=== PATIENT | male | born 1955 | race Caucasian/White ===

== ENCOUNTER 2021-01-26 11:44 | Emergency (ER) | payer MEDICARE ==
[2021-01-26] MEDS ORDERED: Nitroglycerin 2% Ointment 1 INCH/1 GM Packet ONE (12:13)
[2021-01-26] MEDS ORDERED: Aspirin Chewable 81 MG TAB ONE (12:13)
[2021-01-26] MEDS ORDERED: Acetaminophen 500 MG TAB ONE (12:19)
[2021-01-26 12:21] LABS: #Basophils 0.1 thou/uL (0.0-0.2); #Eosinphils 0.1 thou/uL (0.0-0.7); #Lymphocytes 2.4 thou/uL (1.20-3.40); #Monocytes 0.7 thou/uL (0.11-0.59); %Basophils 0.7 % (0.0-1.0); %Eosinophils 0.7 % (0.0-10.0); %Lymphocytes 26.1 % (21.0-51.0); %Monocytes 7.4 % (0.0-10.0); %Neutrophils 65.2 % (42.0-75.0); Hemoglobin 15.3 g/dL (14.0-18.0); Mean Corpuscular HGB CONC 32.4 g/dL (32.0-36.0); Mean Corpuscular Hemoglobin 31.9 pg (27.0-31.0); Mean Corpuscular Volume 98.5 fL (78.0-98.0); Mean Platelet Volume 6.7 fL (7.4-10.4); Platelet Count 274 thou/uL (130-400); RBC Distribution Width 13.3 % (11.5-14.5); Red Blood Cell (RBC) Count 4.78 mill/uL (4.70-6.10); White Blood Cell (WBC) Count 9.2 thou/uL (4.8-10.8)
[2021-01-26 12:23] LABS: ALT (SGPT) 58 U/L (8-55); AST (SGOT) 25 U/L (5-34); Albumin 3.9 g/dL (3.4-4.8); Alkaline Phosphatase 67 U/L (40-110); Anion Gap 16 mmol/L (10-20); BUN (Urea Nitrogen) 13 mg/dL (8.4-25.7); Bilirubin, Total 0.6 mg/dL (0.2-1.2); Calc. Creatinine Clearance 0 mL/min (70-130); Calcium 8.7 mg/dL (7.8-10.44); Carbon Dioxide 21 mmol/L (23-31); Chloride 105 mmol/L (98-107); Globulin 2.2 g/dL (2.4-3.5); Glucose 127 mg/dL (80-115); Potassium 4.1 mmol/L (3.5-5.1); Protein, Total 6.1 g/dL (5.8-8.1); Sodium 138 mmol/L (136-145)
[2021-01-26] MEDS ORDERED: Furosemide 40 MG/4 ML VIAL ONE (12:46)
[2021-01-26] MEDS ORDERED: Lorazepam 0.5 MG TAB ONE (12:55)
== END 2021-01-26 14:37 | disposition short-term general hospital (02) ==
LOC: NAV ERS 11:44
DX: I11.0 Hypertensive heart disease with heart failure (principal); I50.9 Heart failure, unspecified; E78.5 Hyperlipidemia, unspecified; E78.00 Pure hypercholesterolemia, unspecified; F17.210 Nicotine dependence, cigarettes, uncomplicated; Z79.899 Other long term (current) drug therapy
CPT/HCPCS: 71046; 80053; 83880; 84484; 85025; 93005; 96374; J1940

== ENCOUNTER 2023-05-12 11:20 | Emergency (ER) | payer MEDICARE ==
[2023-05-12] MEDS ORDERED: Sodium Chloride 0.9% 1,000 ML ONE (11:57)
[2023-05-12 12:10] LABS: #Basophils 0.1 thou/uL (0.0-0.2); #Eosinphils 0.1 thou/uL (0.0-0.7); #Monocytes 0.6 thou/uL (0.11-0.59); %Basophils 0.8 % (0.0-1.0); %Eosinophils 1.5 % (0.0-10.0); %Lymphocytes 29.5 % (21.0-51.0); %Monocytes 8.4 % (0.0-10.0); %Neutrophils 59.8 % (42.0-75.0); Bilirubin Negative (Negative); Blood, Urine Trace (Negative); Clarity Clear (Clear); Glucose, Urine (Dipstick) Negative (Negative); Hematocrit 44.7 % (42.0-52.0); Hemoglobin 15.7 g/dL (14.0-18.0); Ketone, Urine Negative (Negative); Leukocyte Negative (Negative); Mean Corpuscular HGB CONC 35.2 g/dL (32.0-36.0); Mean Corpuscular Hemoglobin 34.8 pg (27.0-31.0); Mean Corpuscular Volume 98.7 fl (78.0-98.0); Mean Platelet Volume 5.9 fL (7.4-10.4); Nitrite Negative (Negative); Platelet Count 252 10x3/uL (130-400); Protein, Urine (Dipstick) Negative (Neg-Trace); RBC Distribution Width 11.6 % (11.5-14.5); Red Blood Cell (RBC) Count 4.53 mill/uL (4.70-6.10); Urobilinogen 0.2 mg/dL (Less than 2); White Blood Cell (WBC) Count 6.6 10x3/uL (4.8-10.8)
[2023-05-12 12:17] LABS: ALT (SGPT) 18 U/L (8-55); AST (SGOT) 17 U/L (5-34); Albumin 4.4 g/dL (3.4-4.8); Alkaline Phosphatase 70 U/L (40-110); Anion Gap 19 mmol/L (10-20); BUN (Urea Nitrogen) 12 mg/dL (8.4-25.7); Bilirubin, Total 0.5 mg/dL (0.2-1.2); Calc. Creatinine Clearance 0 mL/min (70-130); Carbon Dioxide 21 mmol/L (23-31); Chloride 105 mmol/L (98-107); Estimated GFR 89; Globulin 2.6 g/dL (2.4-3.5); Glucose 128 mg/dL (80-115); Potassium 3.5 mmol/L (3.5-5.1); Sodium 141 mmol/L (136-145)
[2023-05-12 12:27] LABS: RBC/HPF 0-3 HPF (0-3)
[2023-05-13 12:29] LABS: Chlam.trachomatis by PCR,Urine Not Detected (NotDetected); GC N.gonorrhoeae PCR,UrineVOID Not Detected (NotDetected)
== END 2023-05-12 14:35 | disposition home or self-care (01) ==
LOC: NAV ERS 11:20
DX: R30.0 Dysuria (principal); M54.9 Dorsalgia, unspecified; R91.1 Solitary pulmonary nodule; E78.00 Pure hypercholesterolemia, unspecified; F17.210 Nicotine dependence, cigarettes, uncomplicated; Z79.899 Other long term (current) drug therapy
CPT/HCPCS: 71260; 74176; 80053; 81001; 83605; 85025; 87040; 87086; 87491; 87591; J7050

== ENCOUNTER 2024-01-02 15:03 | Emergency (ER) | payer MEDICARE ==
[2024-01-02] MEDS ORDERED: Lorazepam 2 MG/ML VIAL ONE (16:09)
[2024-01-02] MEDS ORDERED: traMADol HCl 50 MG TAB ONE (16:09)
== END 2024-01-02 17:13 | disposition home or self-care (01) ==
LOC: NAV ERS 15:03
DX: M79.10 Myalgia, unspecified site (principal); I25.10 Atherosclerotic heart disease of native coronary artery without angina pectoris; I10 Essential (primary) hypertension; E78.00 Pure hypercholesterolemia, unspecified; F17.210 Nicotine dependence, cigarettes, uncomplicated; Z79.82 Long term (current) use of aspirin; Z79.899 Other long term (current) drug therapy
CPT/HCPCS: 96372; 99283; J2060